=== PATIENT | female | born 2000 ===

== ENCOUNTER 2022-03-06 21:15 | Inpatient (IN) | payer BC ==
[~2022-03-06] VITALS: Ht 167.6 cm; Wt 81.6 kg
[2022-03-06 22:02] LABS: BASOPHILS ABSOLUTE AUTO 0.02 K/mm3 (0.00-0.23); BASOPHILS PERCENT AUTO 0 % (0-2); EOSINOPHILS ABSOLUTE AUTO 0.09 K/mm3 (0.00-0.68); EOSINOPHILS PERCENT AUTO 1 % (0-6); Hematocrit 37.2 % (33.0-51.0); Hemoglobin 12.9 g/dL (11.5-16.0); IMMATURE GRAN ABSOLUTE AUTO 0.06 K/mm3 (0.00-0.10); IMMATURE GRAN PERCENT AUTO 1 % (0-1); LYMPHOCYTES ABSOLUTE AUTO 2.09 K/mm3 (0.84-5.20); LYMPHOCYTES PERCENT AUTO 19 % (21-46); MONOCYTES ABSOLUTE AUTO 0.83 K/mm3 (0.16-1.47); MONOCYTES PERCENT AUTO 8 % (4-13); Mean Corpuscular HGB 30.5 pg (26.0-34.0); Mean Corpuscular HGB Conc 34.7 g/dL (31.5-36.5); Mean Corpuscular Volume 88 fL (80-100); Mean Platelet Volume 10.2 fL (9.1-12.4); NEUTROPHILS ABSOLUTE AUTO 7.79 K/mm3 (1.96-9.15); NEUTROPHILS PERCENT AUTO 72 % (41-73); Platelet Count 193 K/mm3 (150-400); RDW Coefficient Variation 13.2 % (11.7-14.2); RDW Standard Deviation 42.4 fL (35.1-46.3); Red Blood Cell Count 4.23 M/mm3 (3.80-5.20); White Blood Cell Count 10.88 K/mm3 (4.00-11.30)
[2022-03-06] MEDS ORDERED: PRENATAL TABLE1 EAC2 PO (22:09)
--- NOTE | 2022-03-07 09:30 | NUR ---
PT UP TO SHOWER, PT C/O STRONG URGE TO VOID BUT IS UNABLE TO VOID IN TOILET, TO SHOWER
--- NOTE | 2022-03-07 09:35 | NUR ---
IV INFILTRATED UNABLE TO PUSH TORADAL, REMOVED S/L WHILE IN SHOWER, PRESSURE BANDAGE APPLIED WITH COBAND
--- NOTE | 2022-03-07 10:10 | NUR ---
PT UNABLE TO VOID IN SHOWER, BACK TO BED, HERNANDEZ CATHETER REINSERTED, UA SAMPLE COLLECTED AND SENT TO LAB, PROVIDER Divina TSANG CNM NOTIFIED, MINERAL OIL AND ICE ADRIAN PAD APPLIED TO PERINIUM
--- NOTE | 2022-03-07 10:10 | NUR ---
CATHETER RE-INSERTED PT UNABLE TO VOID 4 HRS POST DELIVERY, CATHERIZED FOR 1800CC URINE, SAMPLE SENT TO LAB FOR UA
[2022-03-07 11:15] LABS: Source, Urine Foley catheter
[2022-03-07 11:19] LABS: Appearance, Urine Clear (Clear); Bilirubin, Urine Neg (Neg); Blood, Urine 3+ (Neg); Color, Urine Yellow (P-Yellow); Glucose Qualitative, Urine Neg (Neg); Ketones, Urine Neg (Neg); Leukocyte Esterase, Urine Neg (Neg); Nitrite, Urine Neg (Neg); Protein, Urine Neg (Neg); Specific Gravity, Urine 1.015 (1.003-1.022); Urobilinogen, Urine NORM (Normal)
[2022-03-07 11:30] LABS: Bacteria Not Seen /hpf; Squamous Epithelial Cells Not Seen /hpf (Few); Transitional Epithelial Cells Rare /hpf (0-Rare); White Blood Cells, Urine 0-2 /hpf (0-5)
--- NOTE | 2022-03-07 15:38 | NUR ---
family requesting Dr Ferraro to return to answer questions regard NB birthmark, Dr Damon in room
--- NOTE | 2022-03-08 10:00 | NUR ---
PT DECLINES PNV. DISCHARGE INSTRUCTIONS REVIEWED AND SIGNED. BANDS MATCHED. PT TO BE DISCHARGED TO HOME.
== END 2022-03-08 10:15 | disposition home or self-care (01) | DRG 807 ==
LOC: OBS 21:15 → BC 21:19 → OBS 21:34 → BC 21:35
PROVIDERS: Advanced Practice Midwife; ADMIT Obstetrics & Gynecology
PROC: 10E0XZZ Delivery of Products of Conception, External Approach (ICD-10-PCS; principal; 2022-03-07)
PROC: 0HQ9XZZ Repair Perineum Skin, External Approach (ICD-10-PCS; 2022-03-07)
PROC: 3E0R3BZ Introduction of Anesthetic Agent into Spinal Canal, Percutaneous Approach (ICD-10-PCS; 2022-03-07)
PROC: 00HU33Z Insertion of Infusion Device into Spinal Canal, Percutaneous Approach (ICD-10-PCS; 2022-03-07)
DX: O42.02 Full-term premature rupture of membranes, onset of labor within 24 hours of rupture (principal); Z37.0 Single live birth; O70.0 First degree perineal laceration during delivery; O71.89 Other specified obstetric trauma; O69.1XX0 Labor and delivery complicated by cord around neck, with compression, not applicable or unspecified; Z3A.38 38 weeks gestation of pregnancy; Z91.018 Allergy to other foods; Z79.899 Other long term (current) drug therapy
CPT/HCPCS: 36415; 81001; 85025; 86850; 86900; 86901; A9270; J1885; J3010; J7120

== ENCOUNTER → 2022-05-16 | Outpatient (CLI) | payer BC ==
[~2022-05-16] MED LIST: PRENATAL TABLE1 EAC2 PO
[2022-05-18 08:11] LABS: CHLAMYDIA TRACHOMATIS, NAA Negative (Negative)
== END ==
LOC: LAB SHORT 11:19 → LAB 11:19
PROVIDERS: Advanced Practice Midwife
DX: Z11.3 Encounter for screening for infections with a predominantly sexual mode of transmission (principal)
CPT/HCPCS: 87491; 87591

== ENCOUNTER → 2023-03-02 | Outpatient (CLI) | payer OTHER | END | disposition home or self-care (01) | LOC: LAB 12:15 → LAB SHORT 12:15 | DX: B35.1 Tinea unguium (principal) | CPT/HCPCS: 87102 ==

== ENCOUNTER 2024-11-27 06:30 | Inpatient (IN) | payer OTHER ==
[2024-11-27] VITALS (32 sets, daily range): BP systolic 101–127; BP diastolic 51–77
[~2024-11-27] VITALS: Ht 167.6 cm; Wt 81.1 kg
[2024-11-27] MEDS ORDERED: FentaNYL 2mcg/ml-Bup 0.1% Epd 250 ML EPI PRN (07:10)
[2024-11-27] MEDS ORDERED: Ondansetron HCl 2 MG / ML 2ML Vial IV PRN (07:10)
[2024-11-27] MEDS ORDERED: Methylergonovine Maleate 0.2MG / ML 1ML Amp IM PRN ×2 (07:10→15:05)
[2024-11-27] MEDS ORDERED: Oxytocin 10 Unit / ML Vial IM PRN (07:10)
[2024-11-27] MEDS ORDERED: OXYTOCIN/RINGER'S LACTATE 500 ML IV PRN (07:10)
[2024-11-27] MEDS ORDERED: OXYTOCIN/RINGER'S LACTATE 500 ML IV SCH ×2 (07:10→15:00)
[2024-11-27] MEDS ORDERED: ePHEDrine Sulfate 50 MG/ML 1ML Injection XX PRN (07:10)
[2024-11-27] MEDS ORDERED: Carboprost Tromethamine 250 MCG/ML 1ML Amp IM PRN (07:10)
[2024-11-27] MEDS ORDERED: Tranexamic Acid 100 ML IV SCH (07:25)
[2024-11-27 08:01] LABS: BASOPHILS ABSOLUTE AUTO 0.02 K/mm3 (0.00-0.23); BASOPHILS PERCENT AUTO 0 % (0-2); EOSINOPHILS ABSOLUTE AUTO 0.04 K/mm3 (0.00-0.68); EOSINOPHILS PERCENT AUTO 0 % (0-6); Hematocrit 40.3 % (33.0-51.0); Hemoglobin 13.5 g/dL (11.5-16.0); IMMATURE GRAN ABSOLUTE AUTO 0.04 K/mm3 (0.00-0.10); IMMATURE GRAN PERCENT AUTO 0 % (0-1); LYMPHOCYTES ABSOLUTE AUTO 2.47 K/mm3 (0.84-5.20); LYMPHOCYTES PERCENT AUTO 24 % (21-46); MONOCYTES ABSOLUTE AUTO 0.59 K/mm3 (0.16-1.47); MONOCYTES PERCENT AUTO 6 % (4-13); Mean Corpuscular HGB Conc 33.5 g/dL (31.5-36.5); Mean Corpuscular Volume 88 fL (80-100); NEUTROPHILS ABSOLUTE AUTO 7.20 K/mm3 (1.96-9.15); NEUTROPHILS PERCENT AUTO 70 % (41-73); NRBC ABSOLUTE 0.00 K/mm3 (0.00-0.02); NRBC Auto 0.0 /100 WBC (0.0-0.2); Platelet Count 253 K/mm3 (150-400); RDW Coefficient Variation 13.2 % (11.7-14.2); RDW Standard Deviation 42.3 fL (35.1-46.3)
[2024-11-27] MEDS ORDERED: Benzocaine Topical Anesthetic Spray 60GM TOP PRN (15:00)
[2024-11-27] MEDS ORDERED: Ketorolac Tromethamine 30mg Vial IV PRN (15:05)
[2024-11-27] MEDS ORDERED: Witch Hazel/Glycerin PADS TOP PRN (15:05)
[2024-11-28 04:59] VITALS: BP 97/51
[2024-11-28 07:36] VITALS: BP 93/57
[2024-11-28] MEDS ORDERED: Prenatal Vit/FE Fumarate/FA 1 Tab PO SCH (09:00)
[2024-11-28 11:44] VITALS: BP 100/59
[2024-11-28 15:37] VITALS: BP 106/66
== END 2024-11-28 15:55 | disposition home or self-care (01) | DRG 807 ==
LOC: OBS 06:30 → BC 06:32 → OBS 06:45 → BC 06:46
PROVIDERS: ADMIT Advanced Practice Midwife
PROC: 10E0XZZ Delivery of Products of Conception, External Approach (ICD-10-PCS; principal; 2024-11-27)
PROC: 3E033VJ Introduction of Other Hormone into Peripheral Vein, Percutaneous Approach (ICD-10-PCS; 2024-11-27)
PROC: 3E0R3BZ Introduction of Anesthetic Agent into Spinal Canal, Percutaneous Approach (ICD-10-PCS; 2024-11-27)
PROC: 00HU33Z Insertion of Infusion Device into Spinal Canal, Percutaneous Approach (ICD-10-PCS; 2024-11-27)
DX: O99.72 Diseases of the skin and subcutaneous tissue complicating childbirth (principal); Z37.0 Single live birth; O99.344 Other mental disorders complicating childbirth; F41.8 Other specified anxiety disorders; Z3A.39 39 weeks gestation of pregnancy; Z84.0 Family history of diseases of the skin and subcutaneous tissue
CPT/HCPCS: 85025; 86850; 86900; 86901; A9270; J1885; J2405; J2590; J7120

== ENCOUNTER → 2025-02-13 | Outpatient (CLI) | payer OTHER | LOC: LAB 10:41 → LAB SHORT 10:41 | PROVIDERS: Advanced Practice Midwife | DX: R87.615 Unsatisfactory cytologic smear of cervix (principal) | CPT/HCPCS: G0145 ==